=== PATIENT | male | born 1980 | race African-American/Black ===

== ENCOUNTER 2018-04-27 01:09 | Emergency (ER) | payer MEDICAID ==
[~2018-04-27] VITALS: Ht 167.6 cm; Wt 86.2 kg
[2018-04-27] MEDS ORDERED: TDAP [DIPH/PERTUSSIS/TET] 0.5 ML VIAL IM ONE ×2 (01:15→01:30)
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
--- NOTE | 2018-04-27 01:17 | NUR ---
ER MD AT BEDSIDE TO EVAL PT WITH ORDERS RECEIVED.
--- NOTE | 2018-04-27 01:19 | NUR ---
CALLED [facility], SPOKE TO PANTOGRAPH II ENGRAVER #[id number]. PANTOGRAPH II ENGRAVER AWARE PT DOES NOT WANT TO MAKE REPORT.
[2018-04-27] MEDS ORDERED: LIDOCAINE 1%-EPI 1:100,000 20 ML VIAL TP ONE (01:30)
[2018-04-27] MEDS ORDERED: SODIUM BICARBONATE 5 ML VIAL TP ONE (01:30)
[2018-04-27] MEDS ORDERED: SODIUM BICARBONATE 5 ML VIAL ONE (01:33)
--- NOTE | 2018-04-27 01:34 | NUR ---
[facility] AT BEDSIDE FOR REPORT.
--- NOTE | 2018-04-27 01:56 | NUR ---
[facility] OFFICERS AT BEDSIDE TALKING TO PT.
[2018-04-27] MEDS ORDERED: CEPHALEXIN MONOHYDRATE 500 MG CAPSULE PO ONE ×2 (02:24→02:30)
[2018-04-27 02:35] VITALS: BP 127/64
--- NOTE | 2018-04-27 02:35 | NUR ---
Patient discharged to home in stable condition. Written and verbal after care instructions given. Patient verbalizes understanding of instruction. ambulatory with a steady gait
== END 2018-04-27 02:36 | disposition home or self-care (01) ==
LOC: ER 01:16
DX: S51.812A Laceration without foreign body of left forearm, initial encounter (principal); X99.1XXA Assault by knife, initial encounter; Y93.89 Activity, other specified; Y92.89 Other specified places as the place of occurrence of the external cause; Y99.8 Other external cause status; Z60.2 Problems related to living alone
CPT/HCPCS: 90715; A4606; A6403; J3490; Z7610

== ENCOUNTER 2018-05-12 13:35 | Emergency (ER) | payer MEDICAID ==
[~2018-05-12] VITALS: Ht 167.6 cm; Wt 102.1 kg
[2018-05-12 13:35] VITALS: BP 149/90
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
== END 2018-05-12 14:22 | disposition home or self-care (01) ==
LOC: ER 13:37
DX: S51.812D Laceration without foreign body of left forearm, subsequent encounter (principal); Z60.2 Problems related to living alone; X99.1XXD Assault by knife, subsequent encounter
CPT/HCPCS: A4606; Z7610

== ENCOUNTER 2023-05-02 21:03 | Emergency (ER) | payer MEDICAID ==
[~2023-05-02] VITALS: Ht 167.6 cm; Wt 102.1 kg
[2023-05-02 21:41] VITALS: BP 146/89; TEMP 98.1; O2SAT 98
[2023-05-02] MEDS ORDERED: ACETAMINOPHEN ES 500 MG TABLET ONE (22:28)
[2023-05-02] MEDS ORDERED: TDAP [DIPH/PERTUSSIS/TET] 0.5 ML VIAL IM ONE (22:29)
[2023-05-02] MEDS: ACETAMINOPHEN ES 500 MG TABLET PO ONE (22:32)
[2023-05-02] MEDS: TDAP [DIPH/PERTUSSIS/TET] 0.5 ML VIAL IM ONE (22:32)
== END 2023-05-02 22:48 | disposition home or self-care (01) ==
LOC: ER 21:05
DX: S91.331A Puncture wound without foreign body, right foot, initial encounter (principal); F17.200 Nicotine dependence, unspecified, uncomplicated; Z60.2 Problems related to living alone; W22.8XXA Striking against or struck by other objects, initial encounter; Y93.89 Activity, other specified; Y92.89 Other specified places as the place of occurrence of the external cause; Y99.8 Other external cause status
CPT/HCPCS: 90715